=== PATIENT | male | born 1965 | race Caucasian/White ===

== ENCOUNTER 2017-08-20 19:02 | Emergency (ER) | payer OTHER ==
[2017-08-20 19:09] VITALS: TEMP 98.6
--- NOTE | 2017-08-20 19:20 | CPEKG ---
Heart Rate: 65 RR Interval: 923 P-R Interval: 168 QRSD Interval: 86 QT Interval: 420 QTC Interval: 437 P [place]: 43 QRS [place]: -10 T Wave [place]: 24 EKG Severity - ABNORMAL ECG - EKG Impression: SINUS RHYTHM Electronically Signed By: Lidia Zacarias 20-Aug-2017 23:57:24
[2017-08-20 19:40] LABS: PLATELET COUNT 253 10^3/uL (150-400)
--- NOTE | 2017-08-20 19:40 | EDPHY ---
H & P Stated Complaint: substernal pain x 2 days HPI/ROS: CHIEF COMPLAINT: Chest pain HISTORY OF PRESENT ILLNESS: The patient is a 52 y/o male complaining of intermittent, dull, lower chest pain that lasts around 30 minutes. This chest pain has been happening for 2 days. When the chest pain occurs he becomes nauseous and anxious. The symptoms are alleviated when he tilts his head towards his chest. The pain does not feel like prior episodes of indigestion. Exerting himself does not affect his symptoms. He is not currently experiencing chest pain. In September 2008, he had a normal treadmill stress test and an elevated cholesterol; his cholesterol has not been checked since then. Denies history of hypertension, diabetes. Denies recent illness or receiving the influenza vaccine this year. Denies shortness of breath, abdominal pain, urinary or bowel complaints, calf swelling, fever or other pertinent symptoms. REVIEW OF SYSTEMS: A ten point review of systems was performed and is negative with the exception of the items mentioned in the HPI. Past medical history: 1. Kidney stone 2. PVC's Past surgical history: Denies Family history: 1. Father had CABG at 56 2. Uncle of [place] at 57 3. Mother of [place] at 70 Social history: at bedside, lives in [place], self-employed, non-smoker General Appearance: Alert. Vital signs reviewed. Initial blood pressure 148/ 87. Eyes: Pupils equal and round, no conjunctival injection, no discharge. Anicteric. ENT, Mouth: Mucous membranes are moist, no oropharyngeal erythema or edema. Neck: No lymphadenopathy, supple. No JVD. Respiratory: Lungs are clear to auscultation; no wheezes, rales, or rhonchi. Cardiovascular: Regular rate and rhythm; no murmur, rub, or gallop. Gastrointestinal: Abdomen is soft and nontender, no masses or organomegaly, bowel sounds normal. Skin: Warm and dry, no rashes on exposed skin, normal color. Back: Nontender to palpation over the thoracolumbar spine. No CVAT. Extremities: No lower extremity edema, no calf tenderness or swelling. Neurological: Alert and oriented. Moving all four extremities easily and equally. Psychiatric: Normal affect. - Personal History Current Tetanus Diphtheria and Acellular Pertussis (TDAP): Unsure - Medical/Surgical History Hx Asthma: No Hx Chronic Respiratory Disease: No Hx Diabetes: No Hx Cardiac Disease: No Hx Renal Disease: No Hx HIV/AIDS: No Hx Splenectomy or Spleen Trauma: No - Social History Smoking Status: Never smoked Constitutional: Initial Vital Signs Temperature (C) 37 C 08/20/17 19:06 Heart Rate 71 08/20/17 19:06 Respiratory Rate 20 08/20/17 19:06 Blood Pressure 148/87 H 08/20/17 19:06 O2 Sat (%) 97 08/20/17 19:06 O2 Delivery Mode Room Air Allergies/Adverse Reactions: Penicillins Allergy (Verified 08/20/17 19:04) Home Medications: Medication Instructions Recorded NK [No Known Home Meds] 08/20/17 Medical Decision Making - Diagnostics Imaging: I viewed and interpreted images myself ED Course/Re-evaluation: The patient is a 52 y/o male presenting with dull, intermittent, low, substernal chest pain for the past 2 days. Labs, chest x-ray, and EKG ordered. 324mg PO Aspirin administered. 1917: The 12 lead EKG was interpreted by myself as sinus rhythm with a rate of 65, there is an SV depression leads V3 and V5. See hard copy and/or "tracemaster " electronic copy for interpretation. EKG was repeated. 0: Patient's chest x-ray is negative for any acute processes. 2017: The 2nd 12 lead EKG was interpreted by myself as sinus rhythm with a rate of 61. See hard copy and/or "tracemaster" electronic copy for interpretation. 2231: Reassessed patient and discussed laboratory and imaging findings. His troponin is normal. He is not currently having chest pain. I have referred him to Dr. King, [employer] [facility] compensation manager, and to his primary care physician. His HEART score is 3, putting him at low risk for major coronary event within the next 6 weeks. I feel that he can safely return home with outpatient follow-up and provocative testing. Strict return precautions provided; patient is comfortable with this plan. Differential Diagnosis: Chest pain including but not limited to myocardial ischemia, pulmonary embolus, chest wall pain, pleural inflammation and pulmonary infectious causes. - Data Points Laboratory Results: Laboratory Results 08/20/17 19:28 08/20/17 19:28 Medications Given: Discontinued Medications Aspirin (Aspirin) 324 mg PO EDNOW ONE Stop: 08/20/17 20:08 Last Admin: 08/20/17 20:53 Dose: 324 mg Departure - Departure Disposition: Home, Routine, Self-Care Clinical Impression: Chest pain Qualifiers: Chest pain type: unspecified Qualified Code(s): R07.9 - Chest pain, unspecified Condition: Good Instructions: Chest Pain (ED) Additional Instructions: Based upon the testing done in the Emergency Department today we see no evidence of a heart attack. We are unable to fully exclude coronary artery disease based upon the testing available in the Emergency Department. You need to call your primary care provider tomorrow to schedule a follow up appointment for your chest pain. You should have a cardiac stress test preformed. We also would like you to be seen by cardiology for consideration of additional testing within the next 3 days. Please contact the [facility] you have been referred to schedule this appointment as soon as possible. Their offices are typically open from 8:30am- 5pm M-F. Please return to the Emergency Department immediately for any recurrent chest pain, difficulty breathing or other concerns. Referrals: Jory Ortiz MD [Primary Care Provider] - As per Instructions Kain King MD [Medical Doctor] - As per Instructions Report Scribed for: Lidia Zacarias Report Scribed by: Jing Hernandez Date of Report: 08/20/17 Time of Report: 19:41 Physician Review and Approval Statement: 08/20/17 19:39 Portions of this note were transcribed by the medical driver. I, Dr. Lidia Zacarias, personally performed the history, physical exam, and medical decision- making; and confirmed the accuracy of the information in the transcribed note.
[2017-08-20] MEDS ORDERED: ASPIRIN 81 MG CHEWABLE TAB PO ONE (20:07)
--- NOTE | 2017-08-20 20:20 | CPEKG ---
Heart Rate: 61 RR Interval: 984 P-R Interval: 164 QRSD Interval: 88 QT Interval: 428 QTC Interval: 431 P [place]: 40 QRS [place]: -6 T Wave [place]: 17 EKG Severity - NORMAL ECG - EKG Impression: SINUS RHYTHM Electronically Signed By: Lidia Zacarias 20-Aug-2017 23:57:04
[2017-08-20 20:56] VITALS: RESP 16
[2017-08-20 22:57] VITALS: BP 110/75; PULSE 77; O2SAT 98
== END 2017-08-20 22:57 | disposition home or self-care (01) ==
DX: R07.9 Chest pain, unspecified (principal)

== ENCOUNTER → 2017-08-27 | Outpatient (CLI) | payer OTHER | LOC: CIMAGING 08:29 | PROVIDERS: ATTEND Internal Medicine Cardiovascular Disease | DX: Z13.6 Encounter for screening for cardiovascular disorders (principal); R91.1 Solitary pulmonary nodule | CPT/HCPCS: 75571-PO ==